=== PATIENT | female | born 1995 ===

== ENCOUNTER 2018-01-24 07:41 | Emergency (ER) | payer MEDICAID ==
--- NOTE | 2018-01-24 08:40 | C.PDOC ---
History Of Present Illness 24 years old female with PMHx of asthma is brought in by ALS after she was found screaming and threatening to hurt her children infront of her grandmother's house. As per EMS, patient was violent and aggressive. Patient was given Versed 5mg IM on route. 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 Patient currently complaints of cough and pain and swelling to right breast. Patient has bilateral nipple piercing. Time Seen by Provider: 01/24/18 08:04 Chief Complaint (Nursing): Psychiatric Evaluation History Per: Patient, EMS, Family (Grandmother) History/Exam Limitations: no limitations Onset/Duration Of Symptoms: Hrs Current Symptoms Are (Timing): Still Present Suicide/Self Injury Attempted (Context): None Modifying Factor(s): Alcohol Associated Symptoms: Anger. denies: Suicidal Thoughts, Suicidal Plan Involuntary Hold By: None Recent travel outside of the [place]: No Past Medical History Reviewed: Historical Data, Nursing Documentation, Vital Signs Vital Signs: Last Vital Signs Temp 98.9 F 01/24/18 07:48 Pulse 90 01/24/18 07:48 Resp 18 01/24/18 07:48 BP 123/70 01/24/18 07:48 Pulse Ox 96 01/24/18 07:48 - Medical History PMH: Schizophrenia (?:?) Surgical History: No Surg Hx Family History: States: No Known Family Hx - Social History Hx Alcohol Use: Yes Hx Substance Use: (unknown) Review Of Systems Constitutional: Negative for: Fever, Chills Cardiovascular: Negative for: Chest Pain Respiratory: Positive for: Cough Skin: Positive for: Other (Pain and swelling to right breast ). Negative for: Rash Neurological: Negative for: Weakness, Numbness Physical Exam - Physical Exam Appears: Non-toxic, No Acute Distress, Other (Young, thin female. Sleeping. No signs of trauma. ) Skin: Warm, Dry, No Rash Head: Atraumatic, Normacephalic Eye(s): bilateral: Other (Pinpoint Pupils) Oral Mucosa: Moist Neck: Normal ROM, Supple Chest: Symmetrical, No Tenderness, Other (Obvious swelling to medial right breast, extends around to left side of breast. Left Breast non-tender. Examined with Reina Lynn present.) Cardiovascular: Rhythm Regular, No Murmur Respiratory: No Decreased Breath Sounds, No Rales, No Rhonchi, Wheezing (Coarse with Scattered wheezing ) Gastrointestinal/Abdominal: Bowel Sounds (Active ), Soft, No Tenderness, No Guarding, No Rebound Extremity: Bilateral: Atraumatic, Normal Color And Temperature, Normal ROM Neurological/Psych: Oriented x3, Normal Speech ED Course And Treatment - Laboratory Results Result Diagrams: 01/24/18 08:48 01/24/18 08:48 O2 Sat by Pulse Oximetry: 96 (RA) Pulse Ox Interpretation: Normal - CT Scan/US Breast US Other Rad Studies (CT/US): Read By Radiologist, Radiology Report Reviewed CT/US Interpretation: IMPRESSION: Complex primarily solid mass with cystic components likely infectious/inflammatory. Follow-up to resolution recommended. Medical Decision Making Medical Decision Making: * Patient with normal vital signs * Patient minimally responsive to painful stimuli Plan: * IV fluids * Albuterol treatment * Blood work * Urinalysis * Crisis Notified * Breast US 1100 pt has been sleeping comfortably while in ed, no signs of respiratory distress. pt at this time easily arousable, speech is clear and falls asleep easily. crisis notified pt arousable. 1648 pt has been checked multiple times, and remains easily arousable, with clear speech. at this time pt petersen been cleared by psychiatry for discharge with out patient follow up at [facility]. breast sonogram results discussed with patient; pt to be started on keflex. importance of soonest follow up with breast surgeon discussed with patient; will give pt Dr Hendricks's number, power line installer number and she can call her tool analyst for referral to breast surgeon. pt expresses understanding of plan. Disposition Counseled Patient/Family Regarding: Studies Performed, Diagnosis, Need For Followup, Rx Given - Disposition Referrals: Rodger Hendricks MD [Staff Provider] - Disposition: HOME/ ROUTINE Disposition Time: 16:51 Condition: IMPROVED Additional Instructions: Please follow up with breast surgeon Dr Hendricks, or with any other breast surgeon (can call your tool analyst for referral) as soon as possible for further evaluation of mass in right breast. You can call [facility] [employer] service and the customer service phone number on your insurance card if you need help making an appointment. DO NOT DELAY IN MAKING THIS APPOINTMENT. Bring sonogram report with you when you go to breast surgeon. TAKE ANTIBIOTICS PRESCRIBED UNTIL COMPLETED Follow up with [facility] for further evaluation of your depression. Recommend no drinking of alcohol. 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 - Scribe Statement The provider has reviewed the documentation as recorded by the Scribjackie Luis All medical record entries made by the Antwonibjackie were at my direction and personally dictated by me. I have reviewed the chart and agree that the record accurately reflects my personal performance of the history, physical exam, medical decision making, and the department course for this patient. I have also personally directed, reviewed, and agree with the discharge instructions and disposition.[email or web address]
[2018-01-24 08:55] LABS: BASO % 0.2 % (0.0-2.0); EOS # 0.1 K/uL (0.0-0.7); EOS % 0.8 % (0.0-4.0); HEMOGLOBIN 12.7 g/dL (11.0-16.0); LYMPH # 1.6 K/uL (1.0-4.3); LYMPH % 16.5 % (20.0-40.0); MEAN CELL VOLUME 82.7 fL (81.0-99.0); MEAN CORPUSCULAR HEMOGLOBIN 27.6 pg (27.0-31.0); MEAN CORPUSCULAR HGB CONC 33.4 g/dL (33.0-37.0); MEAN PLATELET VOLUME 8.2 fL (7.2-11.7); MONO # 0.6 K/uL (0.0-0.8); MONO % 5.7 % (0.0-10.0); NEUT # 7.5 K/uL (1.8-7.0); NEUT % 76.8 % (50.0-75.0); NRBC % 0.1 % (0.0-2.0); RBC 4.6 Mil/uL (3.80-5.20); RED CELL DISTRIBUTION WIDTH 13.1 % (11.5-14.5); WHITE BLOOD COUNT 9.8 K/uL (4.8-10.8)
[2018-01-24 09:01] LABS: HCG,QUALITATIVE URINE NEGATIVE (NEGATIVE)
[2018-01-24 09:08] LABS: ALB/GLOB RATIO 1.1 (1.0-2.1); ALBUMIN 4.3 g/dL (3.5-5.0); ALT/SGPT 14 U/L (9-52); AST/SGOT 17 U/L (14-36); BLOOD UREA NITROGEN 8 mg/dL (7-17); GFR NON-AFRICAN AMERICAN > 60
[2018-01-24 09:10] LABS: SQUAMOUS EPITHIAL 5 /hpf (0-5); URINE BACTERIA RARE (<OCC); URINE BILIRUBIN NEGATIVE (NEGATIVE); URINE BLOOD 1+ (NEGATIVE); URINE CLARITY Clear (Clear); URINE COLOR Yellow (YELLOW); URINE GLUCOSE (UA) NORMAL (Normal); URINE LEUKOCYTE ESTERASE NEG Leu/uL (Negative); URINE PROTEIN 2+ mg/dL (NEGATIVE)
[2018-01-24] MEDS ORDERED: Sodium Chloride 0.9% 1,000 ML IV ONE (09:15)
[2018-01-24 09:16] LABS: BARBITURATES, UR NEGATIVE (NEGATIVE); OPIATES, UR NEGATIVE (NEGATIVE); PHENCYCLIDINE, UR NEGATIVE (NEGATIVE)
[2018-01-24] MEDS ORDERED: Sodium Chloride 0.9% 1,000 ML ONE (09:59)
[2018-01-24 10:53] LABS: BENZODIAZEPINES, UR POSITIVE (NEGATIVE)
[2018-01-24] MEDS ORDERED: Albuterol-Ipratrop 3 mg / 0.5 (3 ml) UD INH STA (11:54)
[2018-01-24] MEDS ORDERED: Albuterol-Ipratrop 3 mg / 0.5 (3 ml) UD ONE (12:12)
--- NOTE | 2018-01-24 14:23 | US ---
Date of service: 01/24/2018 PROCEDURE: Ultrasound right breast HISTORY: large tender right mass extending to left COMPARISON: None TECHNIQUE: Standard protocol for this study/examination. FINDINGS: Cyst(s): None Breast mass: Complex primarily solid mass with small cystic components corresponding findings on physical examination. Anatomic localization 4-5 o'clock. The mass measures 2.8 x 3.8 x 4.3 cm. The mass is avascular, the periphery of the mass and a small solitary nodular focus display increased vascularity. Dilated ducts: None Parenchymal distortion: None Skin thickening or subcutaneous abnormalities: None Morphologically, unremarkable lymph node(s) solitary axillary lymph node 1.9 x 2.6 cm. IMPRESSION: Complex primarily solid mass with cystic components likely infectious/inflammatory. Follow-up to resolution recommended.
[2018-01-24 16:39] VITALS: BP 103/69; PULSE 93; RESP 18; TEMP 98.8
[2018-01-24 16:51] VITALS: O2SAT 96
== END 2018-01-24 17:25 | disposition home or self-care (01) ==
LOC: MERGE 07:41 → EDBD 07:41 → C.ER 07:41
DX: F32.9 Major depressive disorder, single episode, unspecified (principal); F10.129 Alcohol abuse with intoxication, unspecified; Y90.8 Blood alcohol level of 240 mg/100 ml or more; N63.10 Unspecified lump in the right breast, unspecified quadrant
CPT/HCPCS: 36415; 76642; 80053; 80320; 80324; 80345; 80346; 80349; 80353; 80358; 80361; 81001; 82948; 83735; 83992; 84100; 84703; 85025; 94640; 96360; 99285; J7030